=== PATIENT | male | born 1950 ===

== ENCOUNTER 2024-10-14 06:38 | Day surgery (SDC) | payer OTHER ==
[2024-09-26 12:28] LABS: Absolute Eosinophils 0.2 K/uL (0-0.5); Absolute Lymphocytes (CBC) 1.2 K/uL (0.7-4.9); Absolute Monocytes 0.5 K/uL (0.1-1.3); Absolute Neutrophil 3.2 K/uL (1.8-8.0); Basophils % 0.6 % (0-1.3); Eosinophils % 3.3 % (0-4.4); Hematocrit 34.3 % (39.6-49.0); Hemoglobin 10.7 g/dL (13.6-17.9); Lymphocytes % 22.9 % (15.3-44.8); MCH 26.2 pg (27.0-35.0); MCHC 31.1 g/dL (32.0-36.0); MPV 7.9 fL (7.6-11.3); Monocytes % 9.8 % (3.3-12.3); Neutrophils % 63.4 % (41.7-73.7); Platelets 180 thou/uL (152-406); RBC Red Blood Cell Count 4.08 M/uL (4.33-5.43); Red Cell Distribution Width 16.6 % (12.1-15.2)
[2024-09-26 12:33] LABS: PT Prothrombin Time 21.2 SECONDS (9.4-12.5); PTT, Activated Partial Thromb 49.4 SECONDS (24.3-36.9); Protime INR 1.93
[2024-09-26 12:41] LABS: Anion Gap 6.8 mEq/L (5.0-15.0); Potassium 3.8 mEq/L (3.5-5.1)
--- NOTE | 2024-09-29 11:19 | EKG ---
Test Date: 2024-09-26 Test Time: 13:17:51 [employer]: HUGH MEASUREMENT RESULTS: Intervals: Rate: 77 MD: 148 QRSD: 88 QT: 396 QTc: 448 [place]: P: 61 MD: 148 QRS: 54 T: 51 INTERPRETIVE STATEMENTS: Sinus rhythm with occasional premature ventricular complexes Otherwise normal ECG Compared to ECG 05/06/2001 19:31:00 Ventricular premature complex(es) now present Sinus arrhythmia no longer present ST (T wave) deviation no longer present Prolonged QT interval no longer present Electronically Signed On 09-29-24 11:14:09 [employer] by Demetrius Pandey
[2024-10-14] MEDS: NA CHLORIDE 0.9% 1,000 ML ONE (07:26)
[2024-10-14] MEDS ORDERED: LIDOCAINE 1% MPF 30 ML VIAL ONE (09:36)
[2024-10-14] MEDS ORDERED: propofoL 200 MG/20 ML VIAL IV ONE ×2 (09:36→10:25)
== END 2024-10-14 11:54 | disposition home or self-care (01) ==
LOC: OR 06:38
PROVIDERS: ATTEND Internal Medicine Gastroenterology
PROC: 0DBH8ZX Excision of Cecum, Via Natural or Artificial Opening Endoscopic, Diagnostic (ICD-10-PCS; 2024-10-14)
PROC: 0DB38ZX Excision of Lower Esophagus, Via Natural or Artificial Opening Endoscopic, Diagnostic (ICD-10-PCS; 2024-10-14)
PROC: 0DB88ZX Excision of Small Intestine, Via Natural or Artificial Opening Endoscopic, Diagnostic (ICD-10-PCS; 2024-10-14)
PROC: 0DB68ZX Excision of Stomach, Via Natural or Artificial Opening Endoscopic, Diagnostic (ICD-10-PCS; 2024-10-14)
PROC: 0DBK8ZX Excision of Ascending Colon, Via Natural or Artificial Opening Endoscopic, Diagnostic (ICD-10-PCS; principal; 2024-10-14 09:47)
PROC: 0DBM8ZX Excision of Descending Colon, Via Natural or Artificial Opening Endoscopic, Diagnostic (ICD-10-PCS; 2024-10-14 09:47)
DX: D50.9 Iron deficiency anemia, unspecified (principal); R19.4 Change in bowel habit; K55.21 Angiodysplasia of colon with hemorrhage; D12.2 Benign neoplasm of ascending colon; D12.0 Benign neoplasm of cecum; K29.50 Unspecified chronic gastritis without bleeding; K44.9 Diaphragmatic hernia without obstruction or gangrene; K22.9 Disease of esophagus, unspecified
CPT/HCPCS: 93005; 85025; 80048; 36415; 88312; 85610; 82947; 88305; 85730; 45385; 43239; J2704 ×2; J2003; J7030